=== PATIENT | female | born 1930 ===

== ENCOUNTER 2017-01-15 13:35 | Inpatient (IN) ==
[2017-01-15] MEDS ORDERED: CEFUROXIME INJ 1,500 MG in SODIUM CHLORIDE 0.9% 100 ML IV ONE (13:56)
[2017-01-15] MEDS ORDERED: GLUCAGON 1 MG VIAL IM PRN ×2 (13:56)
[2017-01-15] MEDS ORDERED: DEXTROSE 50% 25 GM/50 ML VIAL IV PRN ×2 (13:56)
[2017-01-15] MEDS ORDERED: SODIUM CHLORIDE 0.9% 1,000 ML IV SCH (14:00)
--- NOTE | 2017-01-15 14:13 | Cardiothoracic History & Phys ---
History of Present Illness Chief complaint: Shortness of breath and weakness History of present illness: Ms. Meredith is a 86 year old female who was admitted to [facility] because of increasing shortness of breath and weakness. Workup initially for possibility of pulmonary embolism revealed a large pericardial effusion. It was felt that this was significantly contributing to her overall clinical decline and pericardiocentesis was recommended. This was attempted but initially only blood was returned. CAT scan to investigate the problem showed that the pericardial catheter was in fact in the right ventricle traveling into the pulmonary artery. There was fear of hemorrhage of this catheter was removed and we were consulted for removal of the catheter and pericardial drainage. Patient is admitted for subxiphoid attempts at pericardial drainage and catheter removal. Patient has been counseled along with her family that sternotomy may be necessary if hemorrhage results from catheter removal. Past medical history: Patient is a long-term resident with moderate degree of dementia and severe limitation of physical activity. She has a history of urinary incontinence and urinary tract infection. She also has a history of hypertension and osteoarthritis. Family history is noncontributory as is the review of systems and social history. Physical examination patient is a frail-appearing -[place] female who is able to converse and appears to be breathing comfortably sitting up in bed. Examination of head eyes ears nose and throat show the pupils are equal react to light and extraocular motions are intact. Oropharynx is benign. Examination of the neck shows no masses and there is no thyromegaly. Examination of the chest shows that it is clear to percussion and auscultation. Examination the heart reveals a regular rhythm without murmurs. Termination of the abdomen shows that it is soft and nontender and there are no masses appreciated. Examination extremities shows no cyanosis or edema. Neurological examination is grossly intact other than for what appears to be a moderate amount of dementia. Assessment: Attempted pericardiocentesis with catheter penetration of the right ventricle and retention of this catheter. Plan: Subxiphoid attempt at catheter removal and pericardial drainage. Home Medications Medication Instructions Recorded Confirmed Type Citalopram [CeleXA] 10 mg PO BEDTIME 05/21/16 05/29/16 History Lactulose 30 ml PO DAILY 05/21/16 05/29/16 History Levothyroxine Tab [Synthroid Tab] 75 mcg PO DAILY@0700 05/21/16 05/29/16 History Methenamine Hippurate 1 gm PO BID 05/21/16 05/29/16 History Pantoprazole Tab [Protonix Tab] 40 mg PO DAILY 05/21/16 05/29/16 History amLODIPine [Norvasc] 10 mg PO DAILY 05/21/16 05/29/16 History levETIRAcetam [Levetiracetam] 250 mg PO BID 05/21/16 05/29/16 History Megestrol Liquid [Megace Liquid] 400 mg PO BID udcup 05/29/16 05/29/16 Rx Allergies Allergy/AdvReac Type Severity Reaction Status Date / Time methocarbamol Allergy Verified 05/21/16 13:13 morphine Allergy Verified 05/21/16 13:13 propranolol Allergy Verified 05/21/16 13:13 Medical,Surgical,& Family Hx - Medical History Cardio: History of: Hypertension Psychological: History of: Depression Neurology: No history of: Cerebrovascular Accident Endocrine: History of: Thyroid Disorder (surgery) Genitourinary: History of: Kidney Stones, Recurring Urinary Tract Infections Gastrointestinal: History of: GERD Musculoskeletal: History of: Musculoskeletal Problems (back surgery -- lower, rotator cuff surgery) Hematology: History of: Anemia Other: History of: Cancer (uterus-- 46 years ago) - Surgical History Neurologic Surgeries: Patient denies: Neurologic Surgery HEENT Surgeries: Surgical HX of: Eye Surgery (cataract surgery of both eyes), Thyroid Surgery Reproductive Surgeries: Surgical HX of;: Hysterectomy Orthopedic Surgeries: Surgical HX of;: Spinal Surgery, Total Knee Replacement ( right knee) - Family History Family History: Reports;: Family Diabetes (sister), Family Heart Disease (sister ), Family Hypertension (sister), Family Stroke - Social History Smoking Status: Never smoker Quality Measures - VTE Contraindication to Pharmacological VTE Prophylaxis: High Risk of Bleeding
[2017-01-15] MEDS ORDERED: CHLORHEXIDINE 4% SOLN 118 ML BOTTLE TOP SCH (15:00)
[2017-01-15 17:22] LABS: ABG Base Excess -6.8 MMOL/L (-2.5-2.5); ABG HCO3 18.1 MMOL/L (20-26); ABG Oxygen Saturation 82.6 % (95-100); ABG PH 7.344 (7.35-7.45); ABG TCO2 19.1 MMOL/L (23-27)
[2017-01-15] MEDS ORDERED: AZTREONAM 1,000 MG in SODIUM CHLORIDE 0.9% 100 ML IV SCH (18:00)
[2017-01-15 18:07] LABS: Basophils % 0.1 % (0.0-0.8); Hematocrit 25.2 VOL% (35.7-47.0); Hemoglobin 8.8 GM/DL (12.0-16.0); Immature Granulocytes % 1.2 %; Immature Granulocytes Absolute 0.11 #; Lymphocytes # 1.2 10*3/uL (1.4-4.0); Lymphocytes % 13.2 % (21.3-54.2); Mean Corpuscular HGB Conc 34.9 GM/DL (32-36); Mean Corpuscular Hemoglobin 31 PG (27-34); Mean Corpuscular Volume 88.7 FL (87-102); Mean Platelet Volume 9.7 FL (9.6-12.0); Monocytes # 0.8 10*3/uL (0.11-0.8); Monocytes % 8.6 % (1.7-12.7); Neutrophils # 7.2 10*3/uL (1.4-7.4); Neutrophils % 76.9 % (38.7-73.9); Platelet Count 136 T/CUMM (130-400); Red Blood Count 2.84 MC/CUMM (3.8-5.5); Red Cell Distribution Width 17.5 % (9.3-17.3); White Blood Count 9.4 T/CUMM (4-12)
[2017-01-15 18:39] LABS: Alanine Aminotransferase 10 U/L (13-56); Alkaline Phosphatase 60 U/L (45-117); Aspartate Amino Transferase 22 U/L (0-37); Bilirubin,Total < 0.39 MG/DL (0.2-1.0); Blood Urea Nitrogen 16 MG/DL (7-18); Calcium 7.5 MG/DL (8.5-10.1); Glucose 84 MG/DL (74-106); Osmolality,Calculated 278.4 MOS/KG (273-304); Potassium 3.7 MMOL/L (3.5-5.1); Sodium 140 MMOL/L (136-145); Total Protein 5.1 G/DL (6.4-8.3)
--- NOTE | 2017-01-15 18:59 | XRay Report ---
XR chest 1V portable Indication: CAD Comparison: Chest x-ray dated May 28, 2016 Technique: Single frontal view of the chest. Findings: Continued cardiomegaly. Diffuse hazy opacification throughout the bilateral lungs with more dense atelectasis/consolidation within the lung bases suggesting pulmonary edema or pneumonia. Moderate bilateral pleural effusions. Visualized osseous and surrounding soft tissue structures appear grossly unchanged. IMPRESSION: As above. PROCEDURE INTERPRETED AT [facility] DEPARTMENT OF RADIOLOGY Final Report Signed by: Dr Olman Christie
[2017-01-15] MEDS ORDERED: DONEPEZIL 10 MG TABLET PO SCH (21:00)
[2017-01-15] MEDS ORDERED: levETIRAcetam 250 MG TABLET PO SCH (21:00)
[2017-01-15] MEDS ORDERED: CHLORHEXIDINE 0.12% ORAL RINSE 60 ML BOTTLE SWISH/SPIT SCH (21:00)
[2017-01-16] MEDS ORDERED: PHENYLEPHRINE DRIP 40 MG/250 ML PREMIX IV ONE (00:37)
[2017-01-16] MEDS ORDERED: PHENYLEPHRINE DRIP 40 MG/250 ML PREMIX IV SCH (00:40)
[2017-01-16] MEDS ORDERED: ALBUMIN 25% 25 GM in PREMIX 1 EACH IV ONE (00:43)
[2017-01-16] MEDS ORDERED: ETOMIDATE 20 MG/10 ML VIAL IV ONE (00:48)
[2017-01-16] MEDS ORDERED: SUCCINYLCHOLINE 200 MG/10 ML VIAL ONE (00:48)
[2017-01-16] MEDS ORDERED: EPINEPHrine 1 MG/ML VIAL ONE (00:58)
--- NOTE | 2017-01-16 01:11 | Cardiothoracic Progress Note ---
Cardiothoracic Subjective Interval history: Patient was awaiting surgery in the morning and had been relatively stable until during bathing around midnight the nurses were turning the patient and she suddenly developed respiratory distress and hypotension. She was given fluid challenge begun on Allen-Synephrine however her breathing problems continued and the decision was made to intubate. She also remained progressively hypotensive. This resulted in a cardiopulmonary arrest with subsequent ventricular fibrillation from which she could not be resuscitated. Patient was pronounced at 1:03 AM. Family was notified. Exam (Progress Note) - Constitutional Vitals: Period Temp Pulse Resp BP Sys/Lopez Pulse Ox Last 24 Hr 98.3 F 103-116 16-22 112-142/71-93 81-98 Result/EKG - Labs CBC & BMP: 01/15/17 17:54 01/15/17 17:54 Labs: Laboratory Results - last 24 hr 01/15/17 01/15/17 01/15/17 13:56 17:54 17:54 WBC 9.4 RBC 2.84 L Hgb 8.8 L Hct 25.2 L MCV 88.7 MCH 31 MCHC 34.9 RDW 17.5 H Plt Count 136 MPV 9.7 Neut % (Auto) 76.9 H Lymph % (Auto) 13.2 L Kay % (Auto) 8.6 Eos % (Auto) 0.0 Baso % (Auto) 0.1 Neut # (Auto) 7.2 Lymph # (Auto) 1.2 L Kay # (Auto) 0.8 Eos # (Auto) 0.0 Baso # (Auto) 0.0 Immature Gran % 1.2 Nucleated RBC % 1.1 Immature Gran # 0.11 Nucleated RBCs # 0.10 ABG pH 7.344 L ABG pCO2 34.0 L ABG pO2 49.0 L ABG HCO3 18.1 L ABG Total CO2 19.1 L ABG O2 Saturation 82.6 L ABG Base Excess -6.8 L Sodium 140 Potassium 3.7 Chloride 109 H Carbon Dioxide 20 L Anion Gap 14.7 BUN 16 Creatinine 0.60 GFR Calculation 83 BUN/Creatinine Ratio 26.00 H Glucose 84 POC Glucose Calculated Osmolality 278.4 Calcium 7.5 L Total Bilirubin < 0.39 AST 22 ALT 10 L Alkaline Phosphatase 60 Total Protein 5.1 L Albumin 2.0 L Globulin 3.1 Albumin/Globulin Ratio 0.6 L Blood Type Antibody Screen Crossmatch 01/15/17 01/15/17 01/16/17 17:54 18:55 00:32 WBC RBC Hgb Hct MCV MCH MCHC RDW Plt Count MPV Neut % (Auto) Lymph % (Auto) Kay % (Auto) Eos % (Auto) Baso % (Auto) Neut # (Auto) Lymph # (Auto) Kay # (Auto) Eos # (Auto) Baso # (Auto) Immature Gran % Nucleated RBC % Immature Gran # Nucleated RBCs # ABG pH ABG pCO2 ABG pO2 ABG HCO3 ABG Total CO2 ABG O2 Saturation ABG Base Excess Sodium Potassium Chloride Carbon Dioxide Anion Gap BUN Creatinine GFR Calculation BUN/Creatinine Ratio Glucose POC Glucose 146 H Calculated Osmolality Calcium Total Bilirubin AST ALT Alkaline Phosphatase Total Protein Albumin Globulin Albumin/Globulin Ratio Blood Type O POSITIVE O POSITIVE Antibody Screen Negative Crossmatch See Detail Quality Measures - VTE Contraindication to Pharmacological VTE Prophylaxis: High Risk of Bleeding
--- NOTE | 2017-01-16 01:14 | Discharge Summary ---
Hospital Course - Hospital Course Hospital Course: Patient is an 86-year-old lady who was admitted to [facility] because of progressive shortness of breath and weakness. She was found to have pericardial effusion shortly after admission several days ago. Pericardiocentesis was attempted with a return of bloody fluid. This continued at a fairly rapid rate prompting clamping of the tube and CT of the chest. This revealed that the catheter was in fact in the right ventricle extending into the pulmonary artery. Because of fear of increased bleeding this was not removed at that time. Patient remained stable but I was called earlier today to consider removal of the catheter under direct vision. Patient was transferred to this hospital earlier this evening for scheduled subxiphoid pericardial drainage and catheter removal in in the morning. Unfortunately during the middle the night while the patient was being bathed by the nurses she experienced severe hypotension and shortness of breath necessitating intubation. Her hypertension progressed and was unresponsive to the usual measures the patient experienced ventricular fibrillation from which she could not be resuscitated. Patient was pronounced January 16 at 1:03 AM. Discharge Plan - Discharge Medications No Action Pantoprazole Tab [Protonix Tab] 40 mg PO DAILY Methenamine Hippurate 1 gm PO BID Levothyroxine Tab [Synthroid Tab] 75 mcg PO DAILY@0700 levETIRAcetam [Levetiracetam] 250 mg PO BID Lactulose 30 ml PO DAILY Citalopram [CeleXA] 10 mg PO BEDTIME amLODIPine [Norvasc] 10 mg PO DAILY Megestrol Liquid [Megace Liquid] 400 mg PO BID udcup - Follow Up or Referral - Forms/Instructions Exam - Constitutional Vitals: Period Temp Pulse Resp BP Sys/Lopez Pulse Ox Last 24 Hr 98.3 F 103-116 16-22 112-142/71-93 81-98 Discharge Results Procedures and tests throughout hospitalization: Pending Orders 01/15/17 MRSA Surveillence, Inf Control Routine 01/15/17 17:54 Red Blood Cells Leuko Red Routine Type and Screen Routine Labs on day of discharge: Labs from last 24 hours 01/16/17 01/15/17 01/15/17 00:32 18:55 17:54 WBC RBC Hgb Hct MCV MCH MCHC RDW Plt Count MPV Neut % (Auto) Lymph % (Auto) [place] % (Auto) Eos % (Auto) Baso % (Auto) Neut # (Auto) Lymph # (Auto) [place] # (Auto) Eos # (Auto) Baso # (Auto) Immature Gran % Nucleated RBC % Immature Gran # Nucleated RBCs # ABG pH ABG pCO2 ABG pO2 ABG HCO3 ABG Total CO2 ABG O2 Saturation ABG Base Excess Sodium Potassium Chloride Carbon Dioxide Anion Gap BUN Creatinine GFR Calculation BUN/Creatinine Ratio Glucose POC Glucose 146 H Calculated Osmolality Calcium Total Bilirubin AST ALT Alkaline Phosphatase Total Protein Albumin Globulin Albumin/Globulin Ratio Blood Type O POSITIVE O POSITIVE Antibody Screen Negative Crossmatch See Detail 01/15/17 01/15/17 01/15/17 17:54 17:54 13:56 WBC 9.4 RBC 2.84 L Hgb 8.8 L Hct 25.2 L MCV 88.7 MCH 31 MCHC 34.9 RDW 17.5 H Plt Count 136 MPV 9.7 Neut % (Auto) 76.9 H Lymph % (Auto) 13.2 L [place] % (Auto) 8.6 Eos % (Auto) 0.0 Baso % (Auto) 0.1 Neut # (Auto) 7.2 Lymph # (Auto) 1.2 L [place] # (Auto) 0.8 Eos # (Auto) 0.0 Baso # (Auto) 0.0 Immature Gran % 1.2 Nucleated RBC % 1.1 Immature Gran # 0.11 Nucleated RBCs # 0.10 ABG pH 7.344 L ABG pCO2 34.0 L ABG pO2 49.0 L ABG HCO3 18.1 L ABG Total CO2 19.1 L ABG O2 Saturation 82.6 L ABG Base Excess -6.8 L Sodium 140 Potassium 3.7 Chloride 109 H Carbon Dioxide 20 L Anion Gap 14.7 BUN 16 Creatinine 0.60 GFR Calculation 83 BUN/Creatinine Ratio 26.00 H Glucose 84 POC Glucose Calculated Osmolality 278.4 Calcium 7.5 L Total Bilirubin < 0.39 AST 22 ALT 10 L Alkaline Phosphatase 60 Total Protein 5.1 L Albumin 2.0 L Globulin 3.1 Albumin/Globulin Ratio 0.6 L Blood Type Antibody Screen Crossmatch DS: Provider Date of admission: 01/15/17 17:13 Primary care physician: Andrey Sanchez DO Attending physician on admission: Jonathan Enriquez MD Consults: 01/15/17 13:56 Consult to Anesthesiology [CONS] Routine Consulting Provider: Reason for Anesthesiology: Pre-op Clearance Consult to Cardiac Rehabilitation [CONS] Routine Reason for Cardiac Rehabilitation: Other Consult Comment: Cardiac rehab to evaluate and recommend Consult to Dietitian [CONS] Routine Reason for Dietitian: Other Consult Comment: low salt, low cholesterol, diet Consult to Pastoral Services [CONS] Routine Comment: Emotional support Consult to Physical Therapy [CONS] Routine Reason for Physical Therapy: Evaluate and Treat 01/15/17 17:24 Consult to Pastoral Services [CONS] Routine Comment: Pastoral Screen: Request Supply Coordinator Visit Pastoral Screen Source of Request: Family Discharging clinician: Jonathan Enriquez MD Expected date of discharge: 01/16/17
[2017-01-16 01:31] VITALS: BP 91/21
[2017-01-16] MEDS ORDERED: CEFUROXIME INJ 1,500 MG in SODIUM CHLORIDE 0.9% 100 ML IV ONE (06:00)
[2017-01-16] MEDS ORDERED: OXYBUTYNIN 5 MG TABLET PO SCH (09:00)
[2017-01-16] MEDS ORDERED: amLODIPine 10 MG TABLET PO SCH (09:00)
[2017-01-16] MEDS ORDERED: CITALOPRAM 20 MG TABLET PO SCH (09:00)
[2017-01-16] MEDS ORDERED: LACTULOSE 20 GM/30 ML UDCUP PO SCH (09:00)
== END 2017-01-16 01:06 | disposition expired | DRG 920 ==
LOC: N.ICU 17:13